=== PATIENT | female | born 2000 | race Caucasian/White ===

== ENCOUNTER 2021-08-06 14:19 | Inpatient (IN) ==
[2021-08-06 15:09] LABS: Bacteria,Urine Few per hpf (None-Few); Bilirubin,Urine Negative (Negative); Blood,Urine Negative (Negative); Clarity,Urine Turbid (Clear); Color,Urine Yellow (Yellow); Glucose,Urine (UA) Normal (Normal); Ketones,Urine Negative (Negative); Leukocyte Esterase,Urine Negative (Negative); Mucus,Urine Few per lpf (None-Few); Nitrite,Urine Negative (Negative); PH,Urine 6.5 pH Units (5.0-8.0); Protein,Urine Trace mg/dL (Neg-Trace); RBC,Urine 0-3 per hpf (0-3); Specific Gravity,Urine 1.027 (1.010-1.025); Squamous Epithelial Cell,Urine Moderate per hpf (None-Few); Urobilinogen,Urine Normal (Normal); WBC,Urine 0-3 per hpf (0-3)
[2021-08-06 15:10] LABS: Amphetamine Screen,Urine Negative ng/mL (Cutoff=1000); Barbiturate Screen,Urine Negative ng/mL (Cutoff=200); Benzodiazepines Screen,Urine Negative ng/mL (Cutoff=300); Cannabinoid Screen,Urine Positive ng/mL (Cutoff = 50); Cocaine Screen,Urine Negative ng/mL (Cutoff= 300); Opiate Screen,Urine Negative ng/mL (Cutoff=300); Phencyclidine Screen,Urine Negative ng/mL (Cutoff=25)
[2021-08-06] MEDS ORDERED: Tdap (Boostrix) Vaccine 0.5 ML SYRINGE IM ONE (15:15)
[2021-08-06 15:52] LABS: Basophils % 0.4 %; Eosinophils # 0.2 K/mcL (0.0-0.6); Eosinophils % 1.6 %; Hematocrit 40.7 % (35.3-44.9); Hemoglobin 13.5 g/dL (11.5-15.4); Immature Granulocytes % 0.2 % (0-4); Lymphocytes % 21.2 %; Mean Corpuscular HGB Conc 33.2 g/dL (31.6-35.5); Mean Corpuscular Hemoglobin 28.7 pg (28.0-33.3); Mean Corpuscular Volume 86.4 fL (83.0-100.0); Mean Platelet Volume 9.5 fL (9.4-12.4); Monocytes # 0.5 K/mcL (0.0-1.3); Monocytes % 5.3 %; Neutrophils # 6.9 K/mcL (1.6-8.9); Platelet Count 226 K/mcL (140-400); Red Blood Count 4.71 M/mcL (3.82-4.97); Red Cell Distribution Width 12.6 % (11.5-14.5); Segmented Neutrophils % 71.3 %; White Blood Count 9.6 K/mcL (4.3-11.1)
[2021-08-06 16:42] LABS: Ethanol < 10 mg/dL (Less than 10)
[2021-08-06 16:43] LABS: Acetaminophen < 10 mcg/mL (10-20); BUN/Creatinine Ratio 18 (6-26); Blood Urea Nitrogen 13 mg/dL (6-20); Calcium 9.1 mg/dL (8.6-10.3); Carbon Dioxide 25 mEq/L (23-29); Chloride 108 mEq/L (98-107); Glucose 91 mg/dL (70-105); Osmolality,Calculated 286 (280-300); Potassium 3.8 mEq/L (3.5-5.1); Salicylate < 2.5 mg/dL (15.0-30.0); Sodium 138 mEq/L (136-145); eGFR For African Americans > 60 (> 60); eGFR For Non-African Americans > 60 (> 60)
[2021-08-06 18:42] LABS: Influenza A PCR Negative (Negative); Influenza B PCR Negative (Negative); Resp. Syncytial Virus PCR Negative (Negative)
[2021-08-06 18:43] LABS: SARS-CoV-2 by PCR (In House) Negative (Negative)
[2021-08-06] MEDS ORDERED: haloperidoL 5 MG TABLET PO PRN (18:51)
[2021-08-06] MEDS ORDERED: *HR* LORazepam 2 MG/ML VIAL IM PRN (18:51)
[2021-08-06] MEDS ORDERED: Haloperidol Lactate 5 MG/ML VIAL IM PRN (18:51)
[2021-08-06] MEDS ORDERED: traZODone 50 MG TABLET PO PRN (18:51)
[2021-08-06] MEDS ORDERED: Acetaminophen 325 MG TABLET PO PRN (18:51)
[2021-08-06] MEDS ORDERED: *HR* LORazepam 1 MG TABLET PO PRN (18:51)
[2021-08-06] MEDS ORDERED: hydrOXYzine pamoate 25 MG CAPSULE PO PRN (18:51)
[2021-08-06] MEDS: traZODone 50 MG TABLET PO SCH (20:50)
[2021-08-07] MEDS: ARIPiprazole 5 MG TABLET PO SCH ×2 (10:58→20:33)
[2021-08-07] MEDS ORDERED: MOM Conc 10 ML UD.LIQ PO PRN (11:24)
[2021-08-07] MEDS ORDERED: Mag Hydrox/Al Hydrox/Simeth 30 ML UDC PO PRN (11:24)
[2021-08-07] MEDS: traZODone 50 MG TABLET PO SCH (20:33)
[2021-08-08 09:07] VITALS: BP 100/70; PULSE 73; TEMP 98.4; O2SAT 100
[2021-08-08] MEDS ORDERED: FLU Vac QV 21-22 (6Month+)/PF 0.5 ML SYRINGE IM ONE (10:38)
== END 2021-08-08 12:10 | disposition home or self-care (01) | DRG 885 ==
LOC: EMEROOARM 14:19 → 1ANU 18:53
PROVIDERS: ADMIT Psychiatry & Neurology Psychiatry; ATTEND Psychiatry & Neurology Psychiatry